=== PATIENT | male | born 1985 | race Hispanic/Latino ===

== ENCOUNTER 2018-03-20 22:30 | Inpatient (IN) | payer SELFPAY ==
[2018-03-20 22:37] VITALS: O2SAT 99; BMI 24.3
--- NOTE | 2018-03-20 22:49 | ED PDOC ---
Psych Transfer Clearance - Clearance Statement Clearance Statement: Reviewed vital signs, lab results and transfer papers. Patient clinically stable for psychiatric admission.
[2018-03-20] MEDS ORDERED: DiphenhydrAMINE 50 mg/ml Inj IM PRN (23:10)
[2018-03-20] MEDS ORDERED: Magnesium Hydroxide Susp 30 ml UD PO PRN (23:10)
[2018-03-20] MEDS ORDERED: Alum-Mag Hydrox-Simethicone Susp (30 mL) PO PRN (23:10)
--- NOTE | 2018-03-20 23:28 | PCM.BM ---
Treatment Plan Problems - Problems identified on initial assessmt Suicidal ideation Date Initiated: 03/20/18 Time Initiated: 23:26 Assessment reference: NA Status: Active Hopelessness/Helplessness Date Initiated: 03/20/18 Time Initiated: 23:28 Assessment reference: NA Status: Active Ineffective Coping Date Initiated: 03/20/18 Time Initiated: 23:28 Assessment reference: NA Status: Active Treatment assets and liabiliti Patient Assests: negotiates basic needs, cognitively intact Patient Liabilities: poor support system, substance abuse - Milieu Protocol Maintain good personal hygiene: daily Remind patient to perform daily oral care , every shift Encourage regular showers, every shift Assist patient to perform ADL's Conduct patient checks and document Observation sheet: Q15 minutes Maintain personal safety: every shift Educate patient to report safety concerns to staff, every shift Monitor environment for contraband/sharps Medication safety: Monitor for expected outcome, potential side effects: every shift, Assess barriers to learning: every shift, Assess readiness for medication education: every shift
--- NOTE | 2018-03-21 09:16 | PCM.PSYCH ---
Initial Psychiatric Evaluation - Initial Psychiatric Evaluation Type of Admission: Voluntary Legal Status: Capacity Chief Complaint (in patient's own words): "I'm depressed." Patient's Reaction to Hospitalization: HPI: 33 yo male w/ h/o opioid/cocaine/cannabis abuse, presents w/ depressed and suicidal ideation to steal a gun and shoot himself. He was minimally cooperative with interview, stating that he wanted to be left alone to sleep. He reports depression, sleep/appetite disturbances. No AH/VH/paranoia/ delusions. PPHx: Denies past psychiatric history PMHx: Denies medical issues ALL: NKDA SHx: Uses $50 of heroin/day; denies other drug use but Utox was positive for cocaine and cannabis; smokes 1/2 ppd (declined smoking cessation); denies daily ETOH use Current Medications: Active Medications Generic Name Dose Route Start Last Admin Trade Name Freq PRN Reason Stop Dose Admin Acetaminophen 650 mg 03/20/18 23:10 Tylenol 325mg Tab PO Q4 PRN Pain, moderate (4-7) Al Hydrox/Mg Hydrox/Simethicone 30 ml 03/20/18 23:10 Maalox Plus 30 Ml PO Q4 PRN Dyspepsia Clonidine HCl 0.1 mg 03/21/18 01:00 03/21/18 01:00 Catapres PO 03/24/18 01:01 Not Given Q8 ML Diphenhydramine HCl 50 mg 03/20/18 23:10 Benadryl IM Q6 PRN Extrapyramidal S/S Unable PO Diphenhydramine HCl 50 mg 03/20/18 23:10 Benadryl PO Q6 PRN Extrapyramidal Symptoms Diphenhydramine HCl 50 mg 03/20/18 23:31 Benadryl PO HS PRN Sleep Haloperidol 5 mg 03/20/18 23:10 Haldol PO Q4 PRN Agitation Haloperidol Lactate 5 mg 03/20/18 23:10 Haldol IM Q4 PRN Agitation, Unable to Take PO Ibuprofen 400 mg 03/20/18 23:25 Motrin Tab PO 03/23/18 23:26 Q6 PRN Pain, severe (8-10) Loperamide HCl 2 mg 03/20/18 23:20 Imodium PO QID PRN after each LBM Lorazepam 1 mg 03/20/18 23:26 Ativan PO Q8 PRN Agitation Magnesium Hydroxide 30 ml 03/20/18 23:10 Milk Of Magnesia PO HS PRN Constipation Multivitamins/Minerals 1 tab 03/21/18 09:00 Therapeutic-M Tab PO DAILY ML Past Psychiatric History - Past Psychiatric History Previous Treatment History: None Pertinent Medical Hx (Current Medical&Sleep Prob, Allergies): Allergies Allergy/AdvReac Type Severity Reaction Status Date / Time No Known Allergies Allergy Verified 09/24/17 19:33 No Known Home Med 09/24/17 Review of Systems - Psychiatric Psychiatric: As Per HPI, Abnormal Sleep Pattern, Anhedonia, Anxiety, Change in Appetite, Depression, Difficulty Concentrating, Irritability, Suicidal Ideation Mental Status Examination - Personal Presentation Personal Presentation: Looks stated age - Affect Affect: Constricted, Depressed - Motor Activity Motor Activity: Calm - Reliability in Providing Information Reliability in Providing Information: Other (Intentionally not cooperative with interview) - Speech Speech: Organized, Coherent - Mood Mood: Depressed - Formal Thought Process Formal Thought Process: No Impairment - Hallucinations/Delusions Additional comments: NO AH/VH/paranoia - Obsessions/Compulsions Obsessions: No Compulsions: No - Cognitive Functions Orientation: Person, Place, Situation, Time Sensorium: Alert Attention/Concentration: Attentive Estimate of Intelligence: Average Judgement: Imparied, as evidence by: Poor judgement, Imparied, as evidence by: Lack of insight into illness Memory: Recent intact, as evidence by: Ability to recall events of the day - Risk Risk: Suicidal, Diminished functioning - Strength & Assets Inventory Strength & Assets Inventory: Life experience DSM 5 DX - DSM 5 DSM 5 Diagnosis: Substance Induced Mood Disorder; Opioid Use Disorder; Cocaine Use Disorder; Cannabis Use Disorder - Recommended/Plan of Treatment Treatment Recommendations and Plan of Treatment: Substance Induced Mood Disorder; Opioid Use Disorder; Cocaine Use Disorder; Cannabis Use Disorder -Admit to psychiatry unit -Patient not agreeable to treatment with antidepressants at this time -PRNs for opioid withdrawal symptoms -Individual and group therapy -Psychoeducation -Disposition planning Projected ELOS: 5-7 days Discharge Plan and Discharge Criteria: Discharge when patient is psychiatrically stable - Smoking Cessation Smoking Cessation Initiated: No Reason for not providing: Patient declined
[2018-03-21] MEDS: Multivitamin With Minerals Tab PO SCH (10:00)
[2018-03-21 12:21] LABS: T4 9.64 ug/dl (5.5-11.0)
--- NOTE | 2018-03-21 12:21 | CP.PCM.CON ---
History of Present Illness - History of Present Illness History of Present Illness: 33 yo male with multiple substance abuse admitted to psyche unit because of worsening depression and suicidal ideation. Review of Systems - Review of Systems All systems: reviewed and no additional remarkable complaints except (aside from those mentioned above, 12 point system review were negative by me) Past Patient History - Past Social History Smoking Status: Heavy Smoker > 10 Cigarettes Daily Alcohol: Occasional Drugs: Cannabis, Cocaine, Opiates - CARDIAC Hx Cardiac Disorders: No - PULMONARY Hx Respiratory Disorders: No - NEUROLOGICAL Hx Neurological Disorder: No - HEENT Hx HEENT Problems: No - RENAL Hx Chronic Kidney Disease: No - ENDOCRINE/METABOLIC Hx Endocrine Disorders: No - HEMATOLOGICAL/ONCOLOGICAL Hx Blood Disorders: No - INTEGUMENTARY Hx Dermatological Problems: No - MUSCULOSKELETAL/RHEUMATOLOGICAL Hx Musculoskeletal Disorders: No - GASTROINTESTINAL Hx Gastrointestinal Disorders: No - GENITOURINARY/GYNECOLOGICAL Hx Genitourinary Disorders: No - PSYCHIATRIC Hx Substance Use: Yes - SURGICAL HISTORY Hx Surgeries: No - ANESTHESIA Hx Anesthesia: No Meds Allergies/Adverse Reactions: Allergies Allergy/AdvReac Type Severity Reaction Status Date / Time No Known Allergies Allergy Verified 09/24/17 19:33 - Medications Medications: Current Medications Acetaminophen (Tylenol 325mg Tab) 650 mg PO Q4 PRN PRN Reason: Pain, moderate (4-7) Al Hydrox/Mg Hydrox/Simethicone (Maalox Plus 30 Ml) 30 ml PO Q4 PRN PRN Reason: Dyspepsia Clonidine HCl (Catapres) 0.1 mg PO Q8 ML Stop: 03/24/18 01:01 Last Admin: 03/21/18 01:00 Dose: Not Given Diphenhydramine HCl (Benadryl) 50 mg IM Q6 PRN PRN Reason: Extrapyramidal S/S Unable PO Diphenhydramine HCl (Benadryl) 50 mg PO Q6 PRN PRN Reason: Extrapyramidal Symptoms Diphenhydramine HCl (Benadryl) 50 mg PO HS PRN PRN Reason: Sleep Haloperidol (Haldol) 5 mg PO Q4 PRN PRN Reason: Agitation Haloperidol Lactate (Haldol) 5 mg IM Q4 PRN PRN Reason: Agitation, Unable to Take PO Ibuprofen (Motrin Tab) 400 mg PO Q6 PRN PRN Reason: Pain, severe (8-10) Stop: 03/23/18 23:26 Loperamide HCl (Imodium) 2 mg PO QID PRN PRN Reason: after each LBM Lorazepam (Ativan) 1 mg PO Q8 PRN PRN Reason: Agitation Magnesium Hydroxide (Milk Of Magnesia) 30 ml PO HS PRN PRN Reason: Constipation Multivitamins/Minerals (Therapeutic-M Tab) 1 tab PO DAILY ML Ondansetron HCl (Zofran Tab) 4 mg PO Q6 PRN PRN Reason: Nausea/Vomiting Physical Exam - Constitutional Appears: No Acute Distress - Head Exam Head Exam: ATRAUMATIC - Eye Exam Eye Exam: absent: Scleral icterus - ENT Exam ENT Exam: Mucous Membranes Moist - Neck Exam Neck exam: Negative for: Meningismus - Respiratory Exam Respiratory Exam: absent: Rales, Rhonchi, Wheezes, Respiratory Distress - Cardiovascular Exam Cardiovascular Exam: REGULAR RHYTHM, +S1, +S2 - GI/Abdominal Exam GI & Abdominal Exam: Soft. absent: Tenderness - Rectal Exam Rectal Exam: Deferred - Neurological Exam Neurological exam: Alert, Oriented x3 - Psychiatric Exam Psychiatric exam: Normal Affect - Skin Skin Exam: Dry, Intact Results - Vital Signs Recent Vital Signs: Last Vital Signs Temp 97 F L 03/20/18 23:14 Pulse 51 L 03/21/18 01:00 Resp 18 03/20/18 23:14 BP 132/60 03/21/18 01:00 Pulse Ox 99 03/20/18 22:35 Assessment & Plan (1) Depression Status: Acute Comment: psyche is managing (2) Drug dependence Status: Acute Comment: psyche is managing
[2018-03-21 18:00] VITALS: TEMP 97.7
[2018-03-22 09:19] VITALS: BP 116/74; PULSE 58; RESP 18
--- NOTE | 2018-03-22 11:43 | PCM.PYCHDC ---
Mental Status Examination - Mental Status Examination Orientation: Person, Place, Situation, Time Memory: Intact Mood: Neutral Affect: Broad Speech: Appropriate Attention: WNL Concentration: WNL Association: WNL Fund of Knowledge: WNL Formal Thought Process: No Impairment Description of patient's judgement and insight: Chronic poor I/J re: substance abuse; Psychoeducation provided Psychotic Thoughts and Behaviors: No AH/VH/paranoia/delusions Suicidal Ideation: No Current Homicidal Ideation?: No Discharge Summary - Discharge Note Reason for Hospitalization: HPI: 33 yo male w/ h/o opioid/cocaine/cannabis abuse, presents w/ depressed and suicidal ideation to steal a gun and shoot himself. He was minimally cooperative with interview, stating that he wanted to be left alone to sleep. He reports depression, sleep/appetite disturbances. No AH/VH/paranoia/ delusions. PPHx: Denies past psychiatric history PMHx: Denies medical issues ALL: NKDA SHx: Uses $50 of heroin/day; denies other drug use but Utox was positive for cocaine and cannabis; smokes 1/2 ppd (declined smoking cessation); denies daily ETOH use Laboratory Data: Abnormal Lab Results 03/21/18 03/21/18 03/21/18 11:12 11:12 11:12 Hemoglobin A1c 5.9 Triglycerides 99 Cholesterol 93 LDL Cholesterol Direct 42 HDL Cholesterol 26 L Thyroxine (T4) 9.64 TSH 3rd Generation 0.12 L RPR Nonreactive Consultations:: List each consultation separately and include: 1. Reason for request. 2. Findings. 3. Follow-up Consultations: Medicine consult Summary of Hospital Course include:: 1. Description of specific treatment plan utilized for patients during their course of treatmen. 2. Summarize the time- course for resolution of acute symptoms and/or regressed behaviors. 3. Describe issues identified and worked on during hospitalization. 4. Describe medication utilized. 5. Describe medical problems identified and treated. 6. Reassessment of suicide risk Summary of Hospital Course: Patient submitted a 48 hour letter requesting to be discharged. He reports that he made the suicidal comments while acutely intoxicated. He denies acute ideation to harm self or others and denies having access to guns. He denies AH/ VH/paranoia/delusions. He is not interested in any psychiatric medications or treatment at this time. Risks of leaving the hospital were explained to the patient. He has capacity to make decisions at this time and will be discharged AMA. Psychoeducation provided on the dangers of substance abuse. - Final Diagnosis (DSM 5) Condition upon Discharge: STABLE DSM 5: Opioid/Cocaine/Cannabis Use Disorder; Substance Induced Mood Disorder Disposition: AGAINST MEDICAL ADVICE Follow-up Treatment Plan: Discharge AMA - Smoking Cessation Smoking Cessation Medication prescribed: No Reason for not providing: Patient declined - Antipsychotic Medications Pt discharged on 2 or more routine antipsychotic medications: No
[2018-03-22] MEDS: Multivitamin With Minerals Tab PO SCH (13:14)
== END 2018-03-22 13:46 | disposition left against medical advice (07) | DRG 894 ==
LOC: H.ER 22:30 → H.PSYCH 22:52
PROVIDERS: ADMIT Psychiatry & Neurology Psychiatry; ATTEND Psychiatry & Neurology Psychiatry
DX: F11.14 Opioid abuse with opioid-induced mood disorder (principal); R45.851 Suicidal ideations; F14.14 Cocaine abuse with cocaine-induced mood disorder; F19.14 Other psychoactive substance abuse with psychoactive substance-induced mood disorder; F17.210 Nicotine dependence, cigarettes, uncomplicated

== ENCOUNTER 2018-06-28 04:13 | Emergency (ER) | payer MEDICAID ==
[2018-06-28 04:13] VITALS: BMI 24.3
[2018-06-28 04:39] VITALS: O2SAT 98
--- NOTE | 2018-06-28 05:35 | ED PDOC ---
HPI: Psych/Substance Abuse Time Seen by Provider: 06/28/18 04:21 Chief Complaint (Nursing): Psychiatric Evaluation Chief Complaint (Provider): Suicidal Ideation History Per: Patient History/Exam Limitations: no limitations Onset/Duration Of Symptoms: Intermittent Episodes, Worse Since (past few days) Current Symptoms Are (Timing): Still Present Additional Complaint(s): 33 year old male with hx of depression presents to the ED for evaluation of suicidal ideation. He states that he is not on any medication for his depression, and that the past few years he has had suicidal thoughts on and off, worsening the last few days. Patient reports that he wishes to steal a weapon from a law tutor and shoot himself because he is depressed about being homeless. Admits to using cocaine and heroin today, but no alcohol. PMD: none provided Past Medical History Reviewed: Historical Data, Nursing Documentation, Vital Signs Vital Signs: Last Vital Signs Temp 97.5 F L 06/28/18 04:37 Pulse 80 06/28/18 04:37 Resp 16 06/28/18 04:37 BP 109/66 06/28/18 04:37 Pulse Ox 98 06/28/18 04:37 - Medical History PMH: Depression Denies: Chronic Kidney Disease - Surgical History Surgical History: No Surg Hx - Family History Family History: States: Unknown Family Hx - Living Arrangements Living Arrangements: Other (homeless) - Social History Current smoker - smoking cessation education provided: Yes Alcohol: None Drugs: Cocaine, Other (heroin) - Immunization History Hx Tetanus Toxoid Vaccination: No Hx Influenza Vaccination: No Hx Pneumococcal Vaccination: No - Home Medications Home Medications: Ambulatory Orders Medication Instructions Recorded No Known Home Med 09/24/17 - Allergies Allergies/Adverse Reactions: Allergies Allergy/AdvReac Type Severity Reaction Status Date / Time No Known Allergies Allergy Verified 09/24/17 19:33 Review of Systems ROS Statement: Except As Marked, All Systems Reviewed And Found Negative Psych: Positive for: Depression, Suicidal ideation (with plan, but no homicidal ideation), Other (substance abuse) Physical Exam - Reviewed Nursing Documentation Reviewed: Yes Vital Signs Reviewed: Yes - Physical Exam Appears: Positive for: No Acute Distress (but disheveled appearing) Head Exam: Positive for: ATRAUMATIC Skin: Positive for: Normal Color. Negative for: Rash Eye Exam: Positive for: Normal appearance ENT: Positive for: Normal ENT Inspection Neck: Positive for: Normal, Painless ROM, Supple Cardiovascular/Chest: Positive for: Regular Rate, Rhythm Respiratory: Positive for: Normal Breath Sounds. Negative for: Respiratory Distress Gastrointestinal/Abdominal: Positive for: Normal Exam, Soft. Negative for: Tenderness Neurologic/Psych: Positive for: Alert, Oriented (x3), Mood/Affect (depressed) - Laboratory Results Result Diagrams: 06/28/18 05:40 06/28/18 05:40 - ECG O2 Sat by Pulse Oximetry: 98 (RA) Pulse Ox Interpretation: Normal Medical Decision Making Medical Decision Making: A/P: pt with hx of depression presenting for suicidal ideation in setting of drug abuse --pending crisis evaluation Time: 0500 Initial Plan: --Acetaminophen chemistry --Alcohol serum --BMP --Drug screen --Salicylate chemistry --Crisis evaluation --1:1 observation --Urinalysis --Reevaluation 0700 --Patient is medically cleared for crisis eval --Pending crisis eval, will endorse to Dr. Santana --- Scribe Attestation: Documented by Evelina Ortega, acting as a scribe for Christophe Gonsalves MD. Provider Scribe Attestation: All medical record entries made by the Scribe were at my direction and personally dictated by me. I have reviewed the chart and agree that the record accurately reflects my personal performance of the history, physical exam, medical decision making, and the department course for this patient. I have also personally directed, reviewed, and agree with the discharge instructions and disposition. Disposition - Clinical Impression Clinical Impression: Depression, Drug abuse - Disposition Disposition: Transfer of Care Disposition Time: 07:00 Condition: STABLE Forms: [employer] (Thai) Patient Signed Over To: Hilton Santana III Handoff Comments: pending crisis eval
[2018-06-28 05:52] LABS: BASO % 0.6 % (0.0-2.0); EOS # 0.1 K/uL (0.0-0.7); EOS % 1.8 % (0.0-4.0); HEMOGLOBIN 11.4 g/dL (12.0-18.0); LYMPH # 1.1 K/uL (1.0-4.3); LYMPH % 17.4 % (20.0-40.0); MEAN CELL VOLUME 78.4 fl (80.0-94.0); MEAN CORPUSCULAR HGB CONC 33.2 g/dL (33.0-37.0); MONO # 0.7 K/uL (0.0-0.8); MONO % 10.4 % (0.0-10.0); NEUT # 4.5 K/uL (1.8-7.0); NEUT % 69.8 % (50.0-75.0); RBC 4.37 Mil/uL (4.40-5.90); RED CELL DISTRIBUTION WIDTH 21.3 % (11.5-14.5); WHITE BLOOD COUNT 6.5 K/uL (4.8-10.8)
[2018-06-28 05:53] LABS: URINE BILIRUBIN NEGATIVE (NEGATIVE); URINE BLOOD NEGATIVE (NEGATIVE); URINE CLARITY CLEAR (Clear); URINE COLOR YELLOW (YELLOW); URINE GLUCOSE (UA) NEG (Normal); URINE LEUKOCYTE ESTERASE NEG Leu/uL (Negative); URINE PROTEIN NEGATIVE (NEGATIVE); URINE UROBILINOGEN 0.2-1.0 mg/dL (0.2-1.0)
[2018-06-28 06:01] LABS: ACETAMINOPHEN < 10.0 ug/ml (10.0-30.0); BLOOD UREA NITROGEN 13 mg/dl (9-20); CALCIUM 9.1 mg/dL (8.4-10.2); GFR NON-AFRICAN AMERICAN > 60; SALICYLATE < 1.0 mg/dl
[2018-06-28 06:07] LABS: PHENCYCLIDINE, UR NEGATIVE (NEGATIVE)
[2018-06-28 06:09] LABS: BARBITURATES, UR NEGATIVE (NEGATIVE); BENZODIAZEPINES, UR NEGATIVE (NEGATIVE); OPIATES, UR POSITIVE (NEGATIVE)
--- NOTE | 2018-06-28 07:08 | ED PDOC ---
- Laboratory Results Result Diagrams: 06/28/18 05:40 06/28/18 05:40 - ECG O2 Sat by Pulse Oximetry: 98 (RA) Medical Decision Making Medical Decision Makinyo M here for crisis evaluation, 7am pending crisis re-eval. 1130am crisis eval performed patient awake and communicative, cleared by psychiatrist for DC home to recommend outpatient detox and counseling services. Disposition - Clinical Impression Clinical Impression: Depression, Drug abuse - POA Present On Arrival: None - Disposition Referrals: [facility] [Outside] Disposition: Routine/Home Disposition Time: 11:30 Condition: STABLE Additional Instructions: Return to ER for any concern for self. Followup for detox and outpatient couns elivictorina. Instructions: Drug Abuse and Drug Addiction (DC), Depression, Adult (DC) Forms: [employer] ([place]odian)
[2018-06-28 12:34] VITALS: BP 107/55; PULSE 88; RESP 18; TEMP 97.9
== END 2018-06-28 12:32 | disposition home or self-care (01) ==
LOC: H.ER 04:13
DX: F32.9 Major depressive disorder, single episode, unspecified (principal); F19.10 Other psychoactive substance abuse, uncomplicated; F17.200 Nicotine dependence, unspecified, uncomplicated; Z59.0 Homelessness